=== PATIENT | female | born 1975 | race Caucasian/White ===

== ENCOUNTER 2023-01-09 06:06 | Day surgery (SDC) | payer MEDICAID ==
[~2023-01-09] VITALS: Ht 165.1 cm; Wt 67.7 kg
[2023-01-09] VITALS (12 sets, daily range): BP systolic 104–163; BP diastolic 53–103
[2023-01-09] MEDS ORDERED: CLINDAMYCIN 600 MG/50 ML IVPB 50 ML IV ONE (06:15)
[2023-01-09] MEDS ORDERED: LIDOCAINE/EPI 1%-1:200,000 (XYLOCAINE) 30 ML VIAL ONE (06:25)
[2023-01-09] MEDS: LACTATED RINGERS 1,000 ML 1,000 ML IV PRN ×2 (06:50→07:35)
[2023-01-09 06:56] LABS: BASOPHILS # (AUTO) 0.1 10^3/uL (0.0-0.1); BASOPHILS % (AUTO) 1 % (0-10); EOSINOPHILS # (AUTO) 0.3 10^3/uL (0.0-0.3); EOSINOPHILS % (AUTO) 3 % (0-10); HEMATOCRIT 39 % (35-52); HEMOGLOBIN 13.1 g/dL (11.5-16.0); LYMPHOCYTES # (AUTO) 2.7 10^3/uL (1.0-4.0); LYMPHOCYTES % (AUTO) 30 % (12-44); MEAN CORPUSCULAR HEMOGLOBIN 30 pg (25-34); MEAN CORPUSCULAR HGB CONC 34 g/dL (32-36); MEAN CORPUSCULAR VOLUME 87 fL (80-99); MEAN PLATELET VOLUME 11.7 fL (9.0-12.2); MONOCYTES # (AUTO) 0.6 10^3/uL (0.0-1.0); MONOCYTES % (AUTO) 6 % (0-12); NEUTROPHILS # (AUTO) 5.5 10^3/uL (1.8-7.8); NEUTROPHILS % (AUTO) 60 % (42-75); PLATELET COUNT 300 10^3/uL (130-400); WHITE BLOOD COUNT 9.1 10^3/uL (4.3-11.0)
[2023-01-09] MEDS ORDERED: LIDOCAINE PF 2% 5 ML VIAL ONE (07:10)
[2023-01-09] MEDS ORDERED: fentaNYL INJECTION 100 MCG/2 ML VIAL ONE ×2 (07:10→07:55)
[2023-01-09] MEDS ORDERED: dexAMETHasone INJ 10 MG/ML 1 ML VIAL ONE (07:10)
[2023-01-09] MEDS ORDERED: ROCURONIUM 50 MG/5 ML VIAL IV ONE (07:10)
[2023-01-09] MEDS ORDERED: ONDANSETRON INJECTION 4 MG/2 ML (SDV) ONE (07:10)
[2023-01-09] MEDS ORDERED: proPOfol INJECTION 200 MG/20 ML VIAL IV ONE (07:10)
[2023-01-09] MEDS ORDERED: MIDAZOLAM INJ 2 MG/2 ML VIAL ONE (07:13)
[2023-01-09] MEDS ORDERED: MIDAZOLAM INJ 2 MG/2 ML VIAL IV ONE (07:15)
--- NOTE | 2023-01-09 07:17 | Progress Note-Pre Operative ---
Pre-Operative Progress Note Date of Available H&P: Jan 09, 2023 Date H&P Reviewed: Jan 09, 2023 Time H&P Reviewed: 07:00 History & Physical: H&P Reviewed, No changes noted Pre-Operative Diagnosis: AUB fibroids Plan for TLH possible BSO WAYLON CESAR DO Jan 09, 2023 07:17
[2023-01-09] MEDS ORDERED: LIDOCAINE/EPI 1%-1:200,000 (XYLOCAINE) 30 ML VIAL INJ ONE (07:48)
[2023-01-09] MEDS ORDERED: SEVOFLURANE (ULTANE) 15 ML INHAL SOLN ONE (09:07)
[2023-01-09] MEDS ORDERED: GLYCOPYRROLATE INJ 0.2 MG/ML 2 ML VIAL ONE (09:08)
[2023-01-09] MEDS ORDERED: NEOSTIGMINE 1 MG/1ML 10 ML VIAL ONE (09:08)
--- NOTE | 2023-01-09 09:27 | History & Physical-OB/GYN ---
History of Present Illness History of Present Illness Reason for visit/HPI Abnormal uterine bleeding, uterine enlargement, fibroidsThis 47-year-old female presents to surgery today for a planned total laparoscopic hysterectomy with possible bilateral salpingo-oophorectomy secondary to abnormal uterine bleeding and fibroids as well as an enlarged uterus. She has had a longstanding history of abnormal uterine bleeding. She states that she has been bleeding so heavy that she goes through super plus tampon or pad in less than 2 hours. On ultrasound she had a uterine enlargement with a 5 cm fibroid. We discussed different options patient has had her tubal ligation and elected for hysterectomy. Patient verbalized understanding of the risk benefits and alternatives including but not limited to infection, bleeding, injury to bowel bladder ureters, VTE, nerve and limb damage, scar tissue formation the possibility of having to open, anesthesia risks and that the benefits would be to remove the uterus and the fibroid to stop her bleeding. Patient verbalized understanding signed consents and is ready to proceed Date of Admission 01/09/2023 Date Seen by a Provider: Jan 09, 2023 Time Seen by a Provider: 07:00 I consulted on this patient on 01/09/23 09:23 Attending Physician Waylon Cesar DO Admitting Physician Admitting Physician: Attending Physician: Waylon Cesar DO Consult Allergies and Home Medications Allergies Coded Allergies: Penicillins (Verified Allergy, Unknown, 10/27/22) aspirin (Verified Allergy, Unknown, 10/27/22) codeine (Verified Allergy, Unknown, 10/27/22) red dye (Verified Allergy, Unknown, 01/02/23) Patient Home Medication List Home Medication List Reviewed: Yes No Active Prescriptions or Reported Meds Past Glaqzom-Mqustf-Xklsxc Hx Patient Social History Marrital Status: Employed/Student: employed Smoking Status: Current Everyday Smoker Alcohol Use?: No Substance type: Marijuana Tobacco type used: Cigarettes Seasonal Allergies Seasonal Allergies: Yes Surgeries Yes Gallbladder, Orthopedic, Tubal Ligation Respiratory No Currently Using CPAP: No Currently Using BIPAP: No Cardiovascular No Neurological No Reproductive System Sexually Transmitted Disease: No Female Reproductive Disorders: Menstrual Problems [employer] History: Tubal Ligation Genitourinary No Gastrointestinal No Musculoskeletal Yes (RIGHT WRIST ) Arthritis Endocrine History of Endocrine Disorders: No HEENT History of HEENT Disorders: No Cancer No Psychosocial History of Psychiatric Problem: No Integumentary History of Skin or Integumenta: Yes (BLACK DOT DISEASE) Blood Transfusions History of Blood Disorders: No Family Medical History Significant Family History: No Pertinent Family Hx Review of Systems Constitutional: see HPI EENTM: see HPI Respiratory: see HPI Cardiovascular: see HPI Gastrointestinal: see HPI Genitourinary: see HPI Musculoskeletal: see HPI Skin: see HPI Psychiatric/Neurological: No Symptoms Reported, See HPI Physical Exam Physical Exam Vital Signs Vital Signs Date Time Temp Pulse Resp B/P (MAP) Pulse Ox O2 Delivery O2 Flow Rate FiO2 01/09/23 06:30 36.4 50 18 138/72 (94) 99 Room Air Capillary Refill : Labs Laboratory Tests 01/09/23 06:25: White Blood Count 9.1, Red Blood Count 4.41, Hemoglobin 13.1, Hematocrit 39, Mean Corpuscular Volume 87, Mean Corpuscular Hemoglobin 30, Mean Corpuscular Hemoglobin Concent 34, Red Cell Distribution Width 13.0, Platelet Count 300, Mean Platelet Volume 11.7, Immature Granulocyte % (Auto) 0, Neutrophils (%) (Auto) 60, Lymphocytes (%) (Auto) 30, Monocytes (%) (Auto) 6, Eosinophils (%) (Auto) 3, Basophils (%) (Auto) 1, Neutrophils # (Auto) 5.5, Lymphocytes # (Auto) 2.7, Monocytes # (Auto) 0.6, Eosinophils # (Auto) 0.3, Basophils # (Auto) 0.1, Immature Granulocyte # (Auto) 0.0 General Appearance: No Apparent Distress, WD/WN Respiratory: Lungs Clear, Normal Breath Sounds Cardiovascular: Regular Rate, Rhythm, No Edema Abdominal: normal bowel sounds, non tender Gynecology/General: Other (Uterine enlargement with a 5 cm fibroid) Labia: Bilateral, WNL Vagina: WNL Cervix: WNL Uterus: Enlarged Ovaries: Bilateral, WNL Pelvic Exam: normal external exam Extremity: Normal Inspection Assessment/Plan Admission Diagnosis Abnormal uterine bleeding uterine fibroids uterine enlargement Admission Status: Observation WAYLON CESAR DO Jan 09, 2023 09:27
[2023-01-09] MEDS ORDERED: HYDROmorphone INJECTION 2 MG/ML VIAL IV ONE (09:30)
[2023-01-09] MEDS ORDERED: PROMETHAZINE INJ 25 MG/ML VIAL IVP ONE (09:30)
[2023-01-09] MEDS ORDERED: ONDANSETRON INJECTION 4 MG/2 ML (SDV) IVP PRN (09:30)
[2023-01-09] MEDS ORDERED: fentaNYL INJECTION 100 MCG/2 ML VIAL IVP ONE (09:30)
[2023-01-09] MEDS ORDERED: MEPERIDINE INJ 50 MG/ML VIAL IVP ONE (09:30)
--- NOTE | 2023-01-09 09:35 | OB/GYN Operative Report ---
Operative Report Date of Procedure:Jan 09, 2023 Preoperative Diagnosis:Abnormal uterine bleeding uterine enlargement uterine fibroids Postoperative Diagnosis: Same plus bowel adhesions to the left ovary and left pelvic sidewall Name of the Procedure: Total laparoscopic hysterectomy with bilateral salpingectomy and lysis of bowel adhesions Surgeon: Waylon Cesar Anatomy Professor(s): [none] Anesthesia: General ETA Indications for Procedure: Abnormal uterine bleeding, fibroid at least 5 cm uterine enlargement Findings of the Procedure: Uterine enlargement with fibroid bowel adhesions to the left ovary and left pelvic sidewall.Bladder intact both ureters aggressing urine Complications: None Disposition: Counts correct x2 patient taken to the recovery room in stable condition Description of the Procedure: Informed consent was obtained and signed patient was taken to the OR Vik[facility]. 3 placed under general endotracheal anesthesia placed in the dorsolithotomy position prepped and draped usual sterile fashion. A timeout was performed A pelvic exam under anesthesia revealed a slightly enlarged uterus no adnexal masses. A Jc catheter was placed into the urinary bladder and a weighted speculum was placed into the posterior vaginal vault and single-tooth tenaculum was used to grasp the active up the cervix uterus sounded to 8 cm. The Mariel uterine manipulator was then inserted without any difficulty. The single-tooth and weighted speculum were removed. Attention was then paid to the abdomen where a supraumbilical incision was made after injecting with 1% lidocaine with epi. A small incision was made and using direct visualization a 5 mm trocar was inserted into the abdominal cavity. The abdomen was insufflated using carbon oxide gas and the patient was placed in Trendelenburg position. 3 lateral ports were placed one in the left upper quadrant 1 in the left lower quadrant and 1 i n the right lower quadrant under direct visualization. Using a grasper and the LigaSure the pelvic organs were inspected. Both ovaries appeared to be normal. There was noted to be bowel adhesions to the left ovary and the left fallopian tube. Patient had had Falope-Rings placed earlier for her tubal ligation. Both ureters were seen peristalsing and well and away from where we were working. The uterus was noted to be globular and enlarged. There is noted to be bowel adhesions to the left pelvic sidewall. These were brought down using the LigaSure without any difficulties so that we could see the ureter on the left side. The posterior cul-de-sac was free and clear. Using the LigaSure and starting on the left side because of the adhesions first we brought down the bowel adhesions without any difficulty. We then took the fallopian tube on the left side grasped it and incised the mesosalpinx with the LigaSure to the proximal end of this fallopian tube. The ovarian ligament was then cauterized and incised using the LigaSure. The round ligament was then cauterized and incised using the LigaSure and the anterior posterior leaves of the broad ligament on the left side were . The posterior leaf was then cauterized and incised and then the anterior leaf of the broad ligament was cauterized and incised across the anterior side of the uterus into the vesicouterine fascia to create the bladder flap. Next attention was paid to the right side and the right fallopian tube was grasped and the mesosalpinx was cauterized and incised using the LigaSure the ovarian ligament was then cauterized using the LigaSure and then incised. The round ligament was cauterized and incised and incised and the anterior posterior leaf of the broad ligament were the posterior leaf of the broad ligament was cauterized and incised to just above the uterine artery. The anterior leaf also was ca uterized and incised and this was connected to the vesicouterine fascia on the on the anterior side of the uterus. The bladder flap was then reflected off of the cervix. Uterine artery on the right side was then cauterized and incised. The left uterine artery was also cauterized and incised as well. Using the LigaSure hook I then entered into the vagina to create my vaginal cuff. I incised circumferentially around the base of the uterus and the cervix to remove it completely once it was removed completely the uterus fallopian tubes and cervix were removed without any difficulty. A lap sponge was placed inside his glove and 30 was then placed inside the vagina to maintain pneumoperitoneum. The vaginal cuff was reapproximated using OV locking suture in a running fashion. The pressure was brought down to 6 and the area was irrigated copiously and was noted to be hemostatic. There is an area of what might have been some denudation on the colon which we asked general surgery to come in and take a look at which they did and they said that it looked fine and that there was no injury to the bowel. The gas was then brought down to 6 and the pedicles were all inspected and were noted to be hemostatic. The trocars were then removed under direct visualization and the carbon oxide gas was allowed to escape as much as possible. Next the Jc catheter was then removed and using the cystoscope was entered into the bladder cavity the bladder was noted to be intact and both ureters were seen with urine aggressing from them.. The cystoscope was then removed and the Jc catheter was inserted back in. All of the incisions were reapproximated using 3-0 Monocryl and then covered with Dermabond. The estimated blood loss was 100 cc fluids were 1300 cc and urine output was 150 cc. The patient was taken to recovery room in stable condition and all my counts were correct x2. WAYLON CESAR DO Jan 09, 2023 09:35
[2023-01-09] MEDS ORDERED: HYDROmorphone INJECTION 2 MG/ML VIAL ONE (09:37)
[2023-01-09] MEDS ORDERED: MEPERIDINE INJ 50 MG/ML VIAL ONE (09:52)
[2023-01-09] MEDS: PROMETHAZINE INJ 25 MG/ML VIAL ONE ×2 (10:41→10:42)
[2023-01-09] MEDS ORDERED: ACETAMINOPHEN 500 MG TABLET PO SCH (12:15)
[2023-01-09] MEDS ORDERED: ENOXAPARIN 40 MG/0.4 ML SYRINGE SC SCH (12:15)
[2023-01-09] MEDS ORDERED: NALOXONE 0.4 MG/ML 1 ML VIAL IV PRN (12:15)
[2023-01-09] MEDS ORDERED: BENZOCAINE/MENTHOL (DERMOPLAST) 56 ML CAN TP PRN (12:15)
[2023-01-09] MEDS ORDERED: METOCLOPRAMIDE INJ 10 MG/2 ML IV PRN (12:15)
[2023-01-09] MEDS ORDERED: D5 LR 1,000 ML IV SOLN 1,000 ML IV SCH (12:15)
--- NOTE | 2023-01-09 12:16 | Anesthesia-General Post-Op ---
General Patient Condition Mental Status/LOC: Same as Preop Cardiovascular: Satisfactory Nausea/Vomiting: Absent Respiratory: Satisfactory Pain: Controlled Complications: Absent Post Op Complications Complications None Follow Up Care/Instructions Patient Instructions None needed. Anesthesia/Patient Condition Patient Condition Patient is doing well, no complaints, stable vital signs, no apparent adverse anesthesia problems. No complications reported per nursing. LAMIN GUIDRY CRNA Jan 09, 2023 12:16
[2023-01-09] MEDS ORDERED: IBUP-844 PO (12:24)
[2023-01-09] MEDS ORDERED: HYDR2TAB6 PO (12:24)
[2023-01-09] MEDS ORDERED: DOCU100C37 PO (12:24)
--- NOTE | 2023-01-09 12:26 | Discharge Summary ---
Discharge Summary Hospital Course Problems Reviewed?: Yes Hospital Course Date of Admission: Admission Diagnosis : Family Physician/Provider: Adelaida,Local Physician Date of Discharge: 01/09/23 Discharge Diagnosis: Status post total laparoscopic hysterectomy bilateral salpingectomy lysis of adhesions cystoscopy Hospital Course: Patient was admitted for a total laparoscopic hysterectomy with bilateral salpingectomy. She did very well intraoperatively. Her postoperative course was uneventful and she was discharged home on postop day #1 with pain medications and instructions. Labs and Pending Lab Test: Laboratory Tests 01/09/23 06:25: White Blood Count 9.1, Red Blood Count 4.41, Hemoglobin 13.1, Hematocrit 39, Mean Corpuscular Volume 87, Mean Corpuscular Hemoglobin 30, Mean Corpuscular Hemoglobin Concent 34, Red Cell Distribution Width 13.0, Platelet Count 300, Mean Platelet Volume 11.7, Immature Granulocyte % (Auto) 0, Neutrophils (%) (Auto) 60, Lymphocytes (%) (Auto) 30, Monocytes (%) (Auto) 6, Eosinophils (%) (Auto) 3, Basophils (%) (Auto) 1, Neutrophils # (Auto) 5.5, Lymphocytes # (Auto) 2.7, Monocytes # (Auto) 0.6, Eosinophils # (Auto) 0.3, Basophils # (Auto) 0.1, Immature Granulocyte # (Auto) 0.0 Home Meds Active No Active Prescriptions or Reported Medications Patient Discharge Instructions Follow-up in 1 week. Nothing in the vagina no sex tampons or douches Call if increased pain increased bleeding or increased temperature. Activity: Activity as Tolerated Driving Instructions: No Driving for 1 Week NO SMOKING: NO SMOKING Nothing Inside Vagina: No Douching, No [place], No Tampons Discharge Diet: Regular Diet Symptoms to Report to : Pain Increased, Constipation(Persistant), Fever Over 101 Degrees F, Vaginal Bleeding Increase, Vaginal Discharge Foul For Any Problems or Questions: Contact Your Physician Infection Signs and Symptoms: Increased Redness, Foul Odor of Wound, Increased Drainage, Skin Itchy or Has a Rash, Increased Swelling, Temperature Above 101 F Operative Area Clean and Dry: Keep Incision Clean/Dry Stitches/[place]/Dermabond: Dermabond Discharge Physical Examination Allergies: Coded Allergies: Penicillins (Verified Allergy, Unknown, 10/27/22) aspirin (Verified Allergy, Unknown, 10/27/22) codeine (Verified Allergy, Unknown, 10/27/22) red dye (Verified Allergy, Unknown, 01/02/23) Vitals & I&Os Vital Signs Date Time Temp Pulse Resp B/P (MAP) Pulse Ox O2 Delivery O2 Flow Rate FiO2 01/09/23 10:22 94 Room Air 01/09/23 10:22 36.6 58 16 136/60 (85) 01/09/23 10:05 8 Discharge Summary Date of Admission Date of Discharge Admission Diagnosis Status post total laparoscopic hysterectomy with bilateral salpingectomy lysis of adhesions Supervisory-Addendum Brief Verification & Attestation Participated in pt care: history, MDM, physical Personally performed: exam, history, MDM, supervision of care Care discussed with: other Procedures: n/a Results interpretation: Verified all documentation I personally saw and examined this patient. WAYLON CESAR DO Jan 09, 2023 12:26
[2023-01-09] MEDS: IBUPROFEN 600 MG TABLET PO SCH ×2 (14:02→20:24)
[2023-01-09] MEDS ORDERED: FAMOTIDINE INJ 20MG/2ML VIAL IVP PRN (15:30)
[2023-01-09] MEDS: HYDROmorphone 2 MG TABLET PO PRN ×2 (17:24→23:23)
[2023-01-09] MEDS ORDERED: FAMOTIDINE 20 MG TABLET ONE (20:50)
[2023-01-09] MEDS: FAMOTIDINE 20 MG TABLET PO SCH (20:51)
[2023-01-10] MEDS: IBUPROFEN 600 MG TABLET PO SCH ×2 (03:54→10:12)
[2023-01-10 03:57] VITALS: BP 103/62
[2023-01-10 06:05] LABS: BASOPHILS # (AUTO) 0.1 10^3/uL (0.0-0.1); BASOPHILS % (AUTO) 0 % (0-10); EOSINOPHILS % (AUTO) 0 % (0-10); HEMATOCRIT 29 % (35-52); LYMPHOCYTES # (AUTO) 1.5 10^3/uL (1.0-4.0); LYMPHOCYTES % (AUTO) 7 % (12-44); MEAN CORPUSCULAR HEMOGLOBIN 30 pg (25-34); MEAN CORPUSCULAR HGB CONC 35 g/dL (32-36); MEAN CORPUSCULAR VOLUME 87 fL (80-99); MEAN PLATELET VOLUME 12.2 fL (9.0-12.2); MONOCYTES # (AUTO) 0.9 10^3/uL (0.0-1.0); MONOCYTES % (AUTO) 4 % (0-12); NEUTROPHILS % (AUTO) 88 % (42-75); PLATELET COUNT 224 10^3/uL (130-400); WHITE BLOOD COUNT 21.5 10^3/uL (4.3-11.0)
[2023-01-10] MEDS: HYDROmorphone 2 MG TABLET PO PRN ×2 (06:28→11:50)
[2023-01-10 06:48] LABS: LYMPHOCYTES % (MANUAL) 11 %; MONOCYTES % (MANUAL) 6 %; NEUTROPHILS % (MANUAL) 83 %; RBC MORPH NORMAL
[2023-01-10] MEDS ORDERED: NICO-587 TD (08:38)
--- NOTE | 2023-01-10 08:41 | Progress Note ---
Standard Progress Note Progress Notes/Assess & Plan Date Seen by a Provider: Jan 10, 2023 Time Seen by a Provider: 08:30 Progress/Assessment & Plan Patient is postop day #1 status post total laparoscopic hysterectomy with bilateral salpingectomy and lysis of adhesions. She is doing very well has no concerns. Her pain is well controlled. She has been up and ambulating. She has been tolerating her diet. Vital signs stable afebrile Heart-regular rate and rhythm Lungs-clear to auscultation bilaterally Abdomen-soft nontender nondistended bowel sounds present incision sites clean dry intact. Genitourinary-minimal vaginal bleeding Extremities-no cyanosis clubbing erythema or edema. A/P Status post total laparoscopic hysterectomy bilateral salpingectomy cystoscopy DC to home WAYLON CESAR DO Jan 10, 2023 08:41
[2023-01-10 09:00] VITALS: BP 137/65
[2023-01-10] MEDS ORDERED: DOCUSATE SODIUM 100 MG CAPSULE PO SCH (09:00)
[2023-01-10] MEDS ORDERED: ENOXAPARIN 40 MG/0.4 ML SYRINGE SC SCH (09:00)
[2023-01-10] MEDS: FAMOTIDINE 20 MG TABLET PO SCH (09:17)
[2023-01-10 11:48] VITALS: BP 117/58
[2023-01-10] MEDS ORDERED: SIMETHICONE 80 MG CHEWABLE TABLET PO NR (12:00)
[2023-01-10 12:30] VITALS: BP 117/58
== END 2023-01-10 12:30 | disposition home or self-care (01) ==
LOC: SDC 06:06 → WS 10:08 → SDC 01-10 12:30
PROVIDERS: ATTEND Obstetrics & Gynecology
DX: D25.0 Submucous leiomyoma of uterus (principal); D25.1 Intramural leiomyoma of uterus; R93.9 Diagnostic imaging inconclusive due to excess body fat of patient; N73.6 Female pelvic peritoneal adhesions (postinfective); F17.210 Nicotine dependence, cigarettes, uncomplicated; Z28.310 Unvaccinated for COVID-19
CPT/HCPCS: 36415; 84703; 85007; 85025; 85027; 86850; 86900; 86901; 87081; 94664